=== PATIENT | female | born 1930 | race Caucasian/White ===

== ENCOUNTER 2020-12-25 14:14 | Outpatient (CLI) | payer MEDICARE, OTHER | END 2020-12-25 14:15 | disposition home or self-care (01) | LOC: CSHCT 14:14 | PROVIDERS: ATTEND Internal Medicine Cardiovascular Disease | DX: Z01.810 Encounter for preprocedural cardiovascular examination (principal); I48.0 Paroxysmal atrial fibrillation; Z53.9 Procedure and treatment not carried out, unspecified reason ==

== ENCOUNTER 2021-02-22 13:17 | Inpatient (IN) | payer MEDICARE, OTHER ==
[2021-02-22] MEDS ORDERED: Nitroglycerin 0.4 MG TAB 1 EACH ONE (13:37)
[2021-02-22] MEDS ORDERED: Nitroglycerin 2% Ointment 1 INCH/1 GM Packet ONE (13:38)
[2021-02-22 14:22] LABS: Hemoglobin 8.4 g/dL (12.0-15.5); Mean Corpuscular HGB CONC 27.9 g/dL (32.0-36.0); Mean Corpuscular Hemoglobin 18.8 pg (27.0-33.0); Mean Corpuscular Volume 67.3 fl (81.6-98.3); Platelet Count 151 10x3/uL (150-450); RBC Distribution Width 21.9 % (11.5-14.5); Red Blood Cell (RBC) Count 4.47 10x6/uL (3.90-5.03); White Blood Cell (WBC) Count 4.3 10x3/uL (3.5-10.5)
[2021-02-22 14:23] LABS: MDiff Complete? YES
[2021-02-22 14:25] LABS: ALT (SGPT) 24 U/L (8-55); AST (SGOT) 38 U/L (5-34); Albumin 3.9 g/dL (3.4-4.8); Alkaline Phosphatase 171 U/L (40-110); Anion Gap 19 mmol/L (10-20); BUN (Urea Nitrogen) 46 mg/dL (9.8-20.1); Calc. Creatinine Clearance 0 mL/min (70-130); Calcium 8.4 mg/dL (7.8-10.44); Carbon Dioxide 15 mmol/L (23-31); Chloride 108 mmol/L (98-107); Globulin 3.3 g/dL (2.4-3.5); Glucose 169 mg/dL (83-110); Potassium 4.8 mmol/L (3.5-5.1); Protein, Total 7.2 g/dL (5.8-8.1); Sodium 137 mmol/L (136-145)
[2021-02-22 14:32] LABS: ALV-art Gradient 166.025 mmHg (0-20); Actual Bicarbonate (HCO3a) 16.1 mEq/L (22-28); CO2 Tension 24.7 mmHg (35.0-45.0); Calcium, Ionized (arterial) 1.07 mmol/L (1.12-1.30); Hemoglobin (Hb) 9.3 g/dL (12.0-16.0); O2 Tension (PaO2), arterial 88.3 mmHg (> 60.0); Potassium - ABG Lab 4.3 mmol/L (3.70-5.30); Puncture Site LBA; pH, Arterial 7.43 (7.35-7.45)
[2021-02-22] MEDS ORDERED: Furosemide 40 MG/4 ML VIAL ONE (14:34)
[2021-02-22 14:50] LABS: Lymphocytes 12 % (21-51); Nucleated RBC 1 % (0)
[2021-02-22 14:51] LABS: Microcytosis MODERATE=15-30 cells (100X) (0-5/hpf); Monocytes 8 % (0-10); Neutrophil 80 % (42-75)
[2021-02-22 14:52] LABS: Hypochromia MODERATE=16-30 cells (100X) (0-5/hpf); Ovalocytes SLIGHT = 2-5 cells (100X) (0-1/hpf)
[2021-02-22 14:53] LABS: Platelet Morphology Comment Appears Adequate; Schistocytes SLIGHT = 2-5 cells (100X) (0-1/hpf)
[2021-02-22 15:33] LABS: SARS-CoV-2 NAA Rapid Test Not Detected (NotDetected)
[2021-02-22 17:00] LABS: Lactic Acid 3.6 mmol/L (0.5-2.2)
[2021-02-22] MEDS ORDERED: Senokot S 8.6-50 MG TAB PO PRN (17:35)
[2021-02-22] MEDS ORDERED: Acetaminophen 325 MG TAB PO PRN (17:35)
[2021-02-22] MEDS ORDERED: Bisacodyl 5 MG TAB PO PRN (17:35)
[2021-02-22] MEDS ORDERED: Ondansetron PF 4 MG/2 ML Vial IVP PRN (17:35)
[2021-02-22 21:26] VITALS: BMI 25.8
[2021-02-22] MEDS ORDERED: Furosemide 40 MG/4 ML VIAL SLOW IVP SCH (22:15)
[2021-02-22] MEDS ORDERED: Atorvastatin Calcium 20 MG TAB PO SCH (22:45)
[2021-02-22] MEDS ORDERED: Apixaban 2.5 MG TAB PO SCH (23:00)
[2021-02-23 06:23] LABS: #Monocytes 0.6 10x3/uL (0.0-1.1); #Neutrophils 2.9 10x3/uL (1.5-8.4); %Basophils 0.5 % (0.0-2.0); %Eosinophils 0.7 % (0.0-6.0); %Lymphocytes 17.5 % (18.0-47.0); %Monocytes 13.3 % (0.0-10.0); %Neutrophils 67.8 % (40.0-75.0); Hemoglobin 8.2 g/dL (12.0-15.5); Mean Corpuscular HGB CONC 28.6 g/dL (32.0-36.0); Mean Corpuscular Hemoglobin 18.9 pg (27.0-33.0); Mean Corpuscular Volume 66.1 fl (81.6-98.3); Platelet Count 125 10x3/uL (150-450); RBC Distribution Width 21.7 % (11.5-14.5); Red Blood Cell (RBC) Count 4.34 10x6/uL (3.90-5.03); White Blood Cell (WBC) Count 4.2 10x3/uL (3.5-10.5)
[2021-02-23 06:43] LABS: ALT (SGPT) 21 U/L (8-55); AST (SGOT) 34 U/L (5-34); Albumin 3.5 g/dL (3.4-4.8); Alkaline Phosphatase 156 U/L (40-110); Anion Gap 16 mmol/L (10-20); BUN (Urea Nitrogen) 45 mg/dL (9.8-20.1); Bilirubin, Total 1.6 mg/dL (0.2-1.2); Calc. Creatinine Clearance 18 mL/min (70-130); Calcium 8.4 mg/dL (7.8-10.44); Carbon Dioxide 20 mmol/L (23-31); Chloride 108 mmol/L (98-107); Glucose 95 mg/dL (83-110); Magnesium 1.9 mg/dL (1.6-2.6); Phosphorus 3.5 mg/dL (2.3-4.7); Potassium 4.1 mmol/L (3.5-5.1); Protein, Total 6.5 g/dL (5.8-8.1); Sodium 140 mmol/L (136-145)
[2021-02-23] MEDS ORDERED: Furosemide 40 MG/4 ML VIAL SLOW IVP SCH ×2 (08:00→17:30)
[2021-02-23] MEDS ORDERED: Atorvastatin Calcium 20 MG TAB PO SCH (09:00)
[2021-02-23 09:59] LABS: Bilirubin Neg (Negative); Blood, Urine Negative (Negative); Clarity Clear (Clear); Glucose, Urine (Dipstick) Normal (Negative); Ketone, Urine Negative (Negative); Leukocyte Negative (Negative); Nitrite Negative (Negative); Protein, Urine (Dipstick) Negative (Neg-Trace); Specific Gravity, Urine 1.005 (1.002-1.036); Urobilinogen Normal mg/dL (Less than 2); pH, Urine 6.5 (5.0-9.0)
[2021-02-23 10:08] LABS: RBC/HPF 0-3 HPF (0-3); Squamous Epithelial 0-3 HPF (0-3)
[2021-02-23 10:09] LABS: WBC/HPF None Seen HPF (0-3)
[2021-02-23] MEDS: Apixaban 2.5 MG TAB PO SCH ×2 (10:09→20:22)
[2021-02-23 10:10] LABS: Bacteria/HPF None Seen HPF (None Seen)
[2021-02-23 10:11] LABS: Urine Culture Reflex No No
[2021-02-23 14:55] LABS: Hemoglobin A1c 6.4 % (4.0-6.0)
[2021-02-23] MEDS: Atorvastatin Calcium 20 MG TAB PO SCH (20:22)
[2021-02-24 04:00] LABS: ALT (SGPT) 23 U/L (8-55); AST (SGOT) 36 U/L (5-34); Albumin 3.4 g/dL (3.4-4.8); Alkaline Phosphatase 162 U/L (40-110); Anion Gap 17 mmol/L (10-20); BUN (Urea Nitrogen) 45 mg/dL (9.8-20.1); Bilirubin, Total 1.6 mg/dL (0.2-1.2); Calc. Creatinine Clearance 19 mL/min (70-130); Calcium 8.4 mg/dL (7.8-10.44); Carbon Dioxide 23 mmol/L (23-31); Chloride 103 mmol/L (98-107); Glucose 97 mg/dL (83-110); Magnesium 1.9 mg/dL (1.6-2.6); Phosphorus 3.2 mg/dL (2.3-4.7); Protein, Total 6.4 g/dL (5.8-8.1); Sodium 139 mmol/L (136-145)
[2021-02-24 04:04] LABS: #Eosinphils 0.1 10x3/uL (0.0-0.5); #Monocytes 0.5 10x3/uL (0.0-1.1); %Basophils 0.2 % (0.0-2.0); %Eosinophils 1.4 % (0.0-6.0); %Lymphocytes 17.9 % (18.0-47.0); Hemoglobin 8.5 g/dL (12.0-15.5); Mean Corpuscular HGB CONC 27.7 g/dL (32.0-36.0); Mean Corpuscular Hemoglobin 18.5 pg (27.0-33.0); Mean Corpuscular Volume 66.7 fl (81.6-98.3); Platelet Count 133 10x3/uL (150-450); RBC Distribution Width 21.6 % (11.5-14.5); White Blood Cell (WBC) Count 4.4 10x3/uL (3.5-10.5)
[2021-02-24] MEDS ORDERED: Magnesium Sulfate 2 GM in Sodium Chloride 0.9% 100 ML IVPB SCH (09:00)
[2021-02-24] MEDS ORDERED: Magnesium 2 GM/50 ML 2 GM in Premix Bag 1 BAG IVPB SCH (09:00)
[2021-02-24] MEDS ORDERED: FLU VACC QS2021-22(65YR UP)/PF 240 MCG/0.7 ML SYRINGE IM ONE ×2 (09:00→10:01)
[2021-02-24] MEDS ORDERED: Furosemide 20 MG/2 ML VIAL SLOW IVP SCH (09:15)
[2021-02-24] MEDS: Apixaban 2.5 MG TAB PO SCH ×2 (09:33→19:57)
[2021-02-24] MEDS: Furosemide 20 MG/2 ML VIAL SLOW IVP SCH (15:23)
[2021-02-24] MEDS: Atorvastatin Calcium 20 MG TAB PO SCH (19:57)
[2021-02-25 04:27] LABS: #Eosinphils 0.1 10x3/uL (0.0-0.5); #Monocytes 0.5 10x3/uL (0.0-1.1); #Neutrophils 3.1 10x3/uL (1.5-8.4); %Basophils 0.4 % (0.0-2.0); %Eosinophils 1.3 % (0.0-6.0); %Lymphocytes 16.7 % (18.0-47.0); %Monocytes 11.6 % (0.0-10.0); %Neutrophils 69.6 % (40.0-75.0); Anion Gap 15 mmol/L (10-20); BUN (Urea Nitrogen) 42 mg/dL (9.8-20.1); Calc. Creatinine Clearance 19 mL/min (70-130); Calcium 8.1 mg/dL (7.8-10.44); Carbon Dioxide 24 mmol/L (23-31); Chloride 104 mmol/L (98-107); Glucose 92 mg/dL (83-110); Hemoglobin 8.5 g/dL (12.0-15.5); Magnesium 2.4 mg/dL (1.6-2.6); Mean Corpuscular HGB CONC 27.3 g/dL (32.0-36.0); Mean Corpuscular Hemoglobin 18.5 pg (27.0-33.0); Mean Corpuscular Volume 67.8 fl (81.6-98.3); Platelet Count 142 10x3/uL (150-450); Potassium 3.8 mmol/L (3.5-5.1); RBC Distribution Width 21.4 % (11.5-14.5); Red Blood Cell (RBC) Count 4.59 10x6/uL (3.90-5.03); Sodium 139 mmol/L (136-145); White Blood Cell (WBC) Count 4.5 10x3/uL (3.5-10.5)
[2021-02-25] MEDS: Furosemide 20 MG/2 ML VIAL SLOW IVP SCH ×2 (05:48→13:05)
[2021-02-25] MEDS: Apixaban 2.5 MG TAB PO SCH (09:28)
[2021-02-25 16:50] VITALS: BP 106/53; TEMP 98
== END 2021-02-25 18:18 | disposition home or self-care (01) | DRG 291 ==
LOC: SUATTDRO 13:17 → CSHERS 13:17 → CSHTELE 19:06
PROVIDERS: ADMIT Family Medicine; ATTEND Internal Medicine
DX: I13.0 Hypertensive heart and chronic kidney disease with heart failure and stage 1 through stage 4 chronic kidney disease, or unspecified chronic kidney disease (principal); I50.33 Acute on chronic diastolic (congestive) heart failure; J96.01 Acute respiratory failure with hypoxia; N18.4 Chronic kidney disease, stage 4 (severe); K92.2 Gastrointestinal hemorrhage, unspecified; I48.91 Unspecified atrial fibrillation; Z20.822 Contact with and (suspected) exposure to COVID-19; Z79.01 Long term (current) use of anticoagulants; Z86.711 Personal history of pulmonary embolism; E78.5 Hyperlipidemia, unspecified; I35.0 Nonrheumatic aortic (valve) stenosis; D30.3 Benign neoplasm of bladder; Z88.8 Allergy status to other drugs, medicaments and biological substances; K21.9 Gastro-esophageal reflux disease without esophagitis; M19.042 Primary osteoarthritis, left hand; M19.041 Primary osteoarthritis, right hand; J30.9 Allergic rhinitis, unspecified; Z86.16 Personal history of COVID-19; I49.5 Sick sinus syndrome
CPT/HCPCS: 36600; 71045; 80048; 80053; 81001; 82805; 83036; 83605; 83735; 83880; 84100; 84443; 84484; 85025; 90471; 90662; 93005; 93010; 94660; 94760; 96374; 97139; G0008; J1940; J3475; U0002

== ENCOUNTER 2021-03-07 08:28 | Outpatient (CLI) | payer MEDICARE, OTHER | END 2021-03-07 08:29 | disposition home or self-care (01) | LOC: CSHWCC 08:28 | PROVIDERS: ATTEND Nurse Practitioner Family | DX: I87.311 Chronic venous hypertension (idiopathic) with ulcer of right lower extremity (principal); I10 Essential (primary) hypertension; I87.2 Venous insufficiency (chronic) (peripheral); L97.312 Non-pressure chronic ulcer of right ankle with fat layer exposed; L03.115 Cellulitis of right lower limb; B96.89 Other specified bacterial agents as the cause of diseases classified elsewhere; R60.0 Localized edema; Z85.3 Personal history of malignant neoplasm of breast | CPT/HCPCS: 29581; 97139; G0463; 99213 ==

== ENCOUNTER 2021-03-23 10:01 | Inpatient (IN) | payer MEDICARE, OTHER ==
[2021-03-23 11:09] LABS: ALT (SGPT) 13 U/L (8-55); AST (SGOT) 25 U/L (5-34); Albumin 3.7 g/dL (3.4-4.8); Alkaline Phosphatase 164 U/L (40-110); Anion Gap 15 mmol/L (10-20); BUN (Urea Nitrogen) 33 mg/dL (9.8-20.1); Bilirubin, Total 1.4 mg/dL (0.2-1.2); Calc. Creatinine Clearance 0 mL/min (70-130); Calcium 8.9 mg/dL (7.8-10.44); Carbon Dioxide 23 mmol/L (23-31); Chloride 105 mmol/L (98-107); Globulin 3.8 g/dL (2.4-3.5); Glucose 103 mg/dL (83-110); Protein, Total 7.5 g/dL (5.8-8.1); Sodium 138 mmol/L (136-145)
[2021-03-23 11:22] LABS: #Monocytes 0.7 10x3/uL (0.0-1.1); #Neutrophils 7.8 10x3/uL (1.5-8.4); %Basophils 0.2 % (0.0-2.0); %Monocytes 7.8 % (0.0-10.0); %Neutrophils 84.7 % (40.0-75.0); Hemoglobin 8.8 g/dL (12.0-15.5); Mean Corpuscular Hemoglobin 18.9 pg (27.0-33.0); Platelet Count 121 10x3/uL (150-450); RBC Distribution Width 22.2 % (11.5-14.5); Red Blood Cell (RBC) Count 4.66 10x6/uL (3.90-5.03); White Blood Cell (WBC) Count 9.2 10x3/uL (3.5-10.5)
[2021-03-23] MEDS ORDERED: Nitroglycerin 2% Ointment 1 INCH/1 GM Packet ONE (11:48)
[2021-03-23 11:52] LABS: Anisocytosis SLIGHT = 6-15 cells (100X) (0-5/hpf); Hypochromia SLIGHT = 6-15 cells (100X) (0-5/hpf); Microcytosis SLIGHT = 6-15 cells (100X) (0-5/hpf); Ovalocytes SLIGHT = 2-5 cells (100X) (0-1/hpf); Polychromasia SLIGHT = 2-3 cells (100X) (0-2/hpf)
[2021-03-23 11:53] LABS: Platelet Morphology Comment Appears Decreased
[2021-03-23] MEDS ORDERED: Furosemide 40 MG/4 ML VIAL ONE (14:18)
[2021-03-23 15:34] LABS: Troponin I 0.033 ng/mL (< 0.028)
[2021-03-23 17:56] VITALS: BMI 24.2
[2021-03-23 18:12] LABS: Troponin I 0.032 ng/mL (< 0.028)
[2021-03-23] MEDS ORDERED: HYDROcodone/Acetaminophen 5/325 mg Tablet PO PRN (19:15)
[2021-03-23] MEDS: Apixaban 2.5 MG TAB PO SCH (21:06)
[2021-03-23] MEDS ORDERED: CEFAZOLIN 1 GM in Sodium Chloride 0.9% 100 ML IVPB SCH (22:00)
[2021-03-24 04:51] LABS: #Eosinphils 0.1 10x3/uL (0.0-0.5); #Monocytes 0.7 10x3/uL (0.0-1.1); #Neutrophils 4.2 10x3/uL (1.5-8.4); %Basophils 0.5 % (0.0-2.0); %Eosinophils 0.8 % (0.0-6.0); %Lymphocytes 15.9 % (18.0-47.0); %Monocytes 12.4 % (0.0-10.0); %Neutrophils 70.1 % (40.0-75.0); Hemoglobin 8.8 g/dL (12.0-15.5); Platelet Count 130 10x3/uL (150-450); RBC Distribution Width 22.5 % (11.5-14.5); Red Blood Cell (RBC) Count 4.62 10x6/uL (3.90-5.03)
[2021-03-24 04:56] LABS: Anion Gap 14 mmol/L (10-20); BUN (Urea Nitrogen) 33 mg/dL (9.8-20.1); Calc. Creatinine Clearance 23 mL/min (70-130); Calcium 8.5 mg/dL (7.8-10.44); Carbon Dioxide 23 mmol/L (23-31); Chloride 104 mmol/L (98-107); Glucose 89 mg/dL (83-110); Potassium 3.9 mmol/L (3.5-5.1); Sodium 137 mmol/L (136-145)
[2021-03-24 06:05] LABS: Anisocytosis SLIGHT = 6-15 cells (100X) (0-5/hpf); Hypochromia MODERATE=16-30 cells (100X) (0-5/hpf); Microcytosis MODERATE=15-30 cells (100X) (0-5/hpf)
[2021-03-24 06:06] LABS: Ovalocytes SLIGHT = 2-5 cells (100X) (0-1/hpf); Schistocytes SLIGHT = 2-5 cells (100X) (0-1/hpf)
[2021-03-24 06:07] LABS: Platelet Morphology Comment Appears Decreased
[2021-03-24] MEDS ORDERED: Potassium Chloride 10 MEQ TAB PO SCH (08:00)
[2021-03-24] MEDS: Apixaban 2.5 MG TAB PO SCH (08:48)
[2021-03-24] MEDS ORDERED: Digoxin 0.125 MG TAB PO SCH (09:00)
[2021-03-24] MEDS ORDERED: Furosemide 40 MG TAB PO SCH (09:00)
[2021-03-24] MEDS ORDERED: Atorvastatin Calcium 20 MG TAB PO SCH (09:00)
[2021-03-24] MEDS ORDERED: Aspirin 81 mg Enteric Coated Tablet PO SCH (09:00)
[2021-03-24] MEDS ORDERED: CEFAZOLIN 1 GM in Sodium Chloride 0.9% 100 ML IVPB SCH (10:00)
[2021-03-24 15:24] VITALS: BP 133/60; TEMP 97.8
== END 2021-03-24 17:22 | disposition home or self-care (01) | DRG 313 ==
LOC: CSHERS 10:01 → CSHTELE 16:11 → OBSVTOIN 16:11
PROVIDERS: ADMIT Internal Medicine; ATTEND Internal Medicine
DX: R07.89 Other chest pain (principal); L03.115 Cellulitis of right lower limb; I13.0 Hypertensive heart and chronic kidney disease with heart failure and stage 1 through stage 4 chronic kidney disease, or unspecified chronic kidney disease; I50.32 Chronic diastolic (congestive) heart failure; E78.00 Pure hypercholesterolemia, unspecified; I48.91 Unspecified atrial fibrillation; K21.9 Gastro-esophageal reflux disease without esophagitis; M19.90 Unspecified osteoarthritis, unspecified site; N18.30 Chronic kidney disease, stage 3 unspecified; D64.9 Anemia, unspecified; E87.5 Hyperkalemia; I49.5 Sick sinus syndrome; Z88.8 Allergy status to other drugs, medicaments and biological substances; Z79.899 Other long term (current) drug therapy; Z86.711 Personal history of pulmonary embolism; Z90.710 Acquired absence of both cervix and uterus; Z85.3 Personal history of malignant neoplasm of breast; Z98.49 Cataract extraction status, unspecified eye; Z90.11 Acquired absence of right breast and nipple; Z95.0 Presence of cardiac pacemaker
CPT/HCPCS: 36415; 71045; 80048; 80053; 83880; 84484; 85025; 93005; 93010; 93970; 96374; J0690; J1940; J3490

== ENCOUNTER 2021-04-02 09:19 | Outpatient (CLI) | payer MEDICARE, OTHER | END 2021-04-02 09:20 | disposition home or self-care (01) | LOC: CSHWCC 09:19 | PROVIDERS: ATTEND Nurse Practitioner Family | DX: I87.331 Chronic venous hypertension (idiopathic) with ulcer and inflammation of right lower extremity (principal); L97.312 Non-pressure chronic ulcer of right ankle with fat layer exposed; R60.0 Localized edema; I87.2 Venous insufficiency (chronic) (peripheral); L03.115 Cellulitis of right lower limb; B96.89 Other specified bacterial agents as the cause of diseases classified elsewhere; Z85.3 Personal history of malignant neoplasm of breast | CPT/HCPCS: 29581; 99213; G0463 ==

== ENCOUNTER 2021-04-16 11:39 | Outpatient (CLI) | payer MEDICARE, OTHER | END 2021-04-16 11:40 | disposition home or self-care (01) | LOC: CSHWCC 11:39 | PROVIDERS: ATTEND Nurse Practitioner Family | DX: I87.331 Chronic venous hypertension (idiopathic) with ulcer and inflammation of right lower extremity (principal); I87.2 Venous insufficiency (chronic) (peripheral); L97.312 Non-pressure chronic ulcer of right ankle with fat layer exposed; L03.115 Cellulitis of right lower limb; R60.0 Localized edema; B96.89 Other specified bacterial agents as the cause of diseases classified elsewhere; Z85.3 Personal history of malignant neoplasm of breast | CPT/HCPCS: 29581; 99213; G0463 ==

== ENCOUNTER 2021-04-20 21:51 | Emergency (ER) | payer MEDICARE, OTHER ==
[2021-04-20] MEDS ORDERED: Acetaminophen 500 MG TAB ONE (22:56)
[2021-04-20] MEDS ORDERED: Boostrix 0.5 ML (Tdap) VIAL ONE (22:56)
== END 2021-04-21 00:11 | disposition home or self-care (01) ==
LOC: CSHERS 21:51
DX: S62.613A Displaced fracture of proximal phalanx of left middle finger, initial encounter for closed fracture (principal); S51.012A Laceration without foreign body of left elbow, initial encounter; I13.0 Hypertensive heart and chronic kidney disease with heart failure and stage 1 through stage 4 chronic kidney disease, or unspecified chronic kidney disease; I50.9 Heart failure, unspecified; N18.4 Chronic kidney disease, stage 4 (severe); W01.198A Fall on same level from slipping, tripping and stumbling with subsequent striking against other object, initial encounter; Y93.01 Activity, walking, marching and hiking; Y92.000 Kitchen of unspecified non-institutional (private) residence as the place of occurrence of the external cause; Z23 Encounter for immunization; Z85.3 Personal history of malignant neoplasm of breast; Z79.82 Long term (current) use of aspirin; Z79.01 Long term (current) use of anticoagulants; Z79.899 Other long term (current) drug therapy
CPT/HCPCS: 70450; 90471; 90715

== ENCOUNTER 2021-04-27 20:49 | Emergency (ER) | payer MEDICARE, OTHER ==
[2021-04-27] MEDS ORDERED: Morphine 4 MG/ML VIAL ONE (22:01)
== END 2021-04-27 23:45 | disposition home or self-care (01) ==
LOC: CSHERS 20:49
DX: M25.552 Pain in left hip (principal); M25.572 Pain in left ankle and joints of left foot; G89.11 Acute pain due to trauma; I13.0 Hypertensive heart and chronic kidney disease with heart failure and stage 1 through stage 4 chronic kidney disease, or unspecified chronic kidney disease; I50.9 Heart failure, unspecified; N18.9 Chronic kidney disease, unspecified
CPT/HCPCS: 72170; 96372; J2270

== ENCOUNTER 2021-05-16 09:58 | Outpatient (CLI) | payer MEDICARE, OTHER | END 2021-05-16 09:59 | disposition home or self-care (01) | LOC: CSHWCC 09:58 | PROVIDERS: ATTEND Nurse Practitioner Family | DX: I87.331 Chronic venous hypertension (idiopathic) with ulcer and inflammation of right lower extremity (principal); I87.2 Venous insufficiency (chronic) (peripheral); L97.312 Non-pressure chronic ulcer of right ankle with fat layer exposed; L03.115 Cellulitis of right lower limb; R60.0 Localized edema; B96.89 Other specified bacterial agents as the cause of diseases classified elsewhere; Z85.3 Personal history of malignant neoplasm of breast ==